=== PATIENT | male | born 1970 | race Caucasian/White ===

== ENCOUNTER 2018-02-19 09:06 | Emergency (ER) | payer MEDICAID ==
[~2018-02-19] VITALS: Ht 167.6 cm; Wt 118.2 kg
[~2018-02-19 09:06] MED LIST: BUPR-93 PO; METF500T6 PO; MIRT15TA2 PO; QUET25TA PO
[2018-02-19 09:12] VITALS: BP 151/73
[2018-02-19 09:19] LABS: GLUCOSE,POINT OF CARE 132 MG/DL (70-110)
[2018-02-19] MEDS ORDERED: KETOROLAC TROMETHAMINE 60 MG/2 ML VIAL IM ONE (10:45)
[2018-02-19] MEDS ORDERED: ACETAMINOPHEN 500 MG TABLET PO ONE (10:45)
== END 2018-02-19 11:24 | disposition home or self-care (01) ==
LOC: EMS 09:07
DX: M25.562 Pain in left knee (principal); I10 Essential (primary) hypertension; F32.9 Major depressive disorder, single episode, unspecified; F20.9 Schizophrenia, unspecified; F12.90 Cannabis use, unspecified, uncomplicated; F15.90 Other stimulant use, unspecified, uncomplicated; F17.210 Nicotine dependence, cigarettes, uncomplicated
CPT/HCPCS: 82962; 96372; 99283; 99406; J1885